=== PATIENT | female | born 1980 | race Caucasian/White ===

== ENCOUNTER 2020-09-04 06:33 | Day surgery (SDC) | payer BC ==
[2020-08-30 14:23] LABS: Absolute Lymphocytes (CBC) 2.4 K/uL (0.7-4.9); Basophils % 0.9 % (0-1.3); Hematocrit 41.7 % (36.0-45.0); MPV 8.6 fL (7.6-11.3); RBC Red Blood Cell Count 4.58 M/uL (3.86-4.86)
--- NOTE | 2020-08-30 14:26 | RAD REPORT ---
EXAM DESCRIPTION: Kobi Terrell (2 Views)08/30/2020 2:17 pm CLINICAL HISTORY: Preop for knee surgery COMPARISON: None FINDINGS: The lungs appear clear of acute infiltrate. The heart is normal size IMPRESSION: No acute abnormalities displayed
[2020-08-30 14:29] LABS: BUN Blood Urea Nitrogen 14 mg/dL (7-18); Bicarbonate 26 mmol/L (21-32); Glucose Level 81 mg/dL (74-106); Potassium 4.2 mmol/L (3.5-5.1); Sodium Level 144 mmol/L (136-145)
[2020-08-30 14:39] LABS: Protime INR 1.04
[2020-09-04] MEDS ORDERED: CEFAZOLIN/SWI 1gm 1 GM/10 ML SYR ONE (07:08)
[2020-09-04] MEDS ORDERED: Ringers Lactate 1,000 ML IV ONE ×2 (07:08→08:31)
[2020-09-04] MEDS ORDERED: FENTANYL CITR 100 MCG/2 ML ONE (07:23)
[2020-09-04] MEDS ORDERED: dexAMETHasone 10 MG/ML VIAL ONE (07:24)
[2020-09-04] MEDS ORDERED: LIDOCAINE 2% MPF 5 ML VIAL ONE (07:24)
[2020-09-04] MEDS ORDERED: MIDAZOLAM HCL 2 MG/2 ML INJ ONE (07:24)
[2020-09-04] MEDS ORDERED: propofoL 200 MG/20 ML VIAL IV ONE (07:24)
[2020-09-04] MEDS ORDERED: KETOROLAC 30 MG/ML INJ ONE (07:24)
[2020-09-04] MEDS ORDERED: ONDANSETRON 4 MG/2 ML VIAL ONE (07:25)
[2020-09-04] MEDS ORDERED: BUPIVACAINE 0.25% PF 30 ML VIAL ONE (07:30)
--- NOTE | 2020-09-04 08:44 | P.BOP ---
Preoperative diagnosis: left knee lateral meniscus tear Postoperative diagnosis: same Primary procedure: left knee arthroscopic lateral meniscus repair Continuous Pillowcase Cutter: NONE,NONE Specimen: none Anesthesia: General Complications: None Implants: 5 fast fix meniscal sutures Fluids & blood products: per anesthesia record; TT: 38 mins @ 300 mmHg Transferred to: Recovery Room Condition: Good
[2020-09-04 08:59] VITALS: O2SAT 100
[2020-09-04] MEDS ORDERED: HYDROCODONE/APAP 5/325 MG TAB ONE (10:09)
[2020-09-04 12:49] VITALS: BP 118/60
[2020-09-04 12:53] VITALS: TEMP 97.2
--- NOTE | 2020-09-05 14:42 | OP ---
Date of Procedure: 09/04/2020 Surgeon: Silverio Rain MD Preoperative Diagnosis: Left knee lateral meniscus tear. Postoperative Diagnosis: Left knee lateral meniscus tear. Procedure Performed: Left knee arthroscopic lateral meniscus repair. Anesthesia: General LMA. Fluids: Per Anesthesia record. Ebl: 3 cc. Complications: None. Implants: Five fast fix meniscal sutures. Indications For Procedure: Magdalena is a 40-year-old female who presented to my clinic with signs, symptoms, and MRI findings consistent with lateral meniscus tear. I discussed with the patient at length risks and benefits associated with operative and nonoperative treatment. She expressed understanding and elected to proceed with operative treatment. Description Of Procedure: After informed consent was obtained, the patient was identified in the preoperative holding area. The left lower extremity was marked. The patient was then brought back to the operating room, transferred to the operating table in supine fashion, placed under general LMA anesthesia. The left lower extremity was then prepped and draped in usual sterile fashion. Time-out was initiated. Correct patient and procedure were confirmed and identified. The patient did receive preoperative prophylactic antibiotics. The left lower extremity was then exsanguinated and the tourniquet was inflated to 300 mmHg. Standard anteromedial and anterolateral portals were created. Diagnostic arthroscopy was performed after placing the arthroscope within the lateral portal. No significant chondromalacia noted of the patella. No loose bodies found within the medial and lateral gutters. The arthroscope was brought into the medial compartment. The patient was noted to have an intact medial meniscus which was stable to probe and no significant chondromalacia noted of the medial femoral condyle and medial tibial plateau. The arthroscope was then brought in the intercondylar notch where the patient was noted to have an intact ACL and PCL which were stable to probe The arthroscope was then brought in the lateral compartment where the patient was noted to have longitudinal tear of posterior horn of the lateral meniscus posterior to the popliteal hiatus. Anterior to the popliteal hiatus there was no tear noted. A meniscal rasp was then used to freshen up the edges of the meniscal tear and did appear to be amenable to repair. Three Fast fix meniscal sutures were then placed from the superior border of the lateral meniscus in vertical mattress fashion and 2 meniscal sutures were placed in the inferior surface in horizontal mattress fashion for repair of the lateral meniscus tear and there was overall reduction of the meniscal tear and it was stable to probe. Arthroscopic instruments were then removed without complication. The wounds were then irrigated thoroughly with normal saline and portals were closed with 3-0 Monocryl. Sterile dressing was applied. Tourniquet was let down. The patient was transferred back to the PACU in stable condition. She will remain nonweightbearing on left lower extremity for 6 weeks. Follow up in my clinic in 1 week for wound check. CV/MODL Voice ID: [id number] Report ID: [id number] MARTY
== END 2020-09-04 10:35 | disposition home or self-care (01) ==
LOC: OR 06:33
PROVIDERS: ATTEND Orthopaedic Surgery Sports Medicine
PROC: 0SQD4ZZ Repair Left Knee Joint, Percutaneous Endoscopic Approach (ICD-10-PCS; principal; 2020-09-04 07:30)
DX: S83.282A Other tear of lateral meniscus, current injury, left knee, initial encounter (principal); M89.9 Disorder of bone, unspecified; I10 Essential (primary) hypertension; Z20.822 Contact with and (suspected) exposure to COVID-19
CPT/HCPCS: 85025; 80048; 36415; 81025; 85610; 85730; 71046; 29882; U0002; J2704; J2250; J3010; J1100; J0690; J7120 ×2; J2405

== ENCOUNTER 2022-09-02 08:32 | Day surgery (SDC) | payer BC ==
[2022-09-02 08:48] LABS: Absolute Lymphocytes (CBC) 2.2 K/uL (0.7-4.9); Hematocrit 40.7 % (36.0-45.0); Lymphocytes % 25.7 % (15.3-44.8); MCV 88.7 fL (80-100); MPV 7.5 fL (7.6-11.3); RBC Red Blood Cell Count 4.59 M/uL (3.86-4.86)
[2022-09-02 08:53] LABS: Specific Gravity 1.018 (1.005-1.030)
[2022-09-02 08:56] LABS: Protime INR 1.07
[2022-09-02] MEDS ORDERED: CEFAZOLIN SODIUM 1 GM/VIAL ONE (08:56)
[2022-09-02] MEDS ORDERED: Ringers Lactate 1,000 ML IV ONE (08:56)
--- NOTE | 2022-09-02 08:57 | RAD REPORT ---
EXAM DESCRIPTION: RAD - Chest Pa And Lat (2 Views) - 09/02/2022 8:33 am CLINICAL HISTORY: pre op for surgery COMPARISON: Chest Pa And Lat (2 Views) dated 08/30/2020 FINDINGS: Lines: None. Lungs: No evidence of edema or pneumonia. Pleural: No significant pleural effusions or pneumothorax. Cardiac: The heart size is within normal limits. Mediastinum: Within normal limits. Bones: No acute fractures. Other: None IMPRESSION: No acute cardiopulmonary disease.
[2022-09-02 09:00] LABS: Potassium 4.3 mmol/L (3.5-5.1)
[2022-09-02 09:18] VITALS: O2SAT 100
[2022-09-02] MEDS ORDERED: BUPIVACAINE 0.25% PF 30 ML VIAL ONE (11:12)
[2022-09-02] MEDS ORDERED: FENTANYL CITR 100 MCG/2 ML ONE (11:13)
[2022-09-02] MEDS ORDERED: propofoL 200 MG/20 ML VIAL IV ONE (11:13)
[2022-09-02] MEDS ORDERED: LIDOCAINE 2% MPF 5 ML VIAL ONE (11:14)
[2022-09-02] MEDS ORDERED: MIDAZOLAM HCL 2 MG/2 ML INJ ONE (11:14)
[2022-09-02] MEDS ORDERED: ONDANSETRON 4 MG/2 ML VIAL ONE (11:14)
[2022-09-02] MEDS ORDERED: dexAMETHasone 10 MG/ML VIAL ONE (11:56)
[2022-09-02] MEDS ORDERED: HYDROCODONE/APAP 5/325 MG TAB ONE (13:33)
[2022-09-02 14:07] VITALS: BP 113/79; TEMP 97.1
--- NOTE | 2022-09-02 15:19 | EKG ---
Test Date: 2022-09-02 Test Time: 08:11:36 Patient Resource Coordinator: ESTELA MEASUREMENT RESULTS: Intervals: Rate: 71 ND: 148 QRSD: 76 QT: 370 QTc: 402 [place]: P: 82 ND: 148 QRS: 37 T: 56 INTERPRETIVE STATEMENTS: Normal sinus rhythm with sinus arrhythmia Normal ECG Compared to ECG 08/30/2020 13:45:24 Sinus bradycardia no longer present Electronically Signed On 09-02-22 15:19:06 ACADEMIC VICE PRESIDENT by Dieudonne Rodriguez
--- NOTE | 2022-09-03 08:15 | P.BOP ---
Preoperative diagnosis: left knee lateral meniscus tear Postoperative diagnosis: same Primary procedure: left knee partial lateral meniscectomy Sort Worker: NONE,NONE Estimated blood loss: 3 cc Specimen: none Findings: see dictation Anesthesia: General Complications: None Implants: none Fluids & blood products: per anesthesia record; TT: 25 mins @ 250 mmHg Transferred to: Recovery Room Condition: Good
--- NOTE | 2022-09-03 11:53 | OP ---
Date of Procedure: 09/02/2022 Surgeon: Silverio Rain MD Preoperative Diagnosis: Left knee lateral meniscus tear. Postoperative Diagnosis: Left knee lateral meniscus tear. Procedure Performed: Left knee partial lateral meniscectomy. Anesthesia: General LMA. Fluids: Per Anesthesia record. Estimated Blood Loss: 3 cc. Complications: None. Indication For Procedure: Magdalena is a 42-year-old female who presented to my clinic with signs, symp toms, and MRI findings consistent with a displaced bucket-handle lateral meniscus tear. Patient had this tear in the past and had a lateral meniscus repair approximately 2 years ago and was doing well until a couple of weeks ago when she had a locking injury. Repeat MRI demonstrates a displaced later al meniscus bucket-handle tear. I discussed with the patient and her family at length risks and bene fits associated with operative and nonoperative treatment including lateral meniscus repair versus pa rtial lateral meniscectomy. They expressed understanding. Given the failure of repair, we discussed possibility of unhealthy tissue as well as inability to completely heal the tear and they expressed understanding and elected to proceed with operative treatment. Description Of Procedure: After informed consent was obtained, the patient was identified in the pre operative holding area. The left lower extremity was marked. Patient was then brought back to the o perating room, transferred to the operating table in supine fashion, placed under general LMA anesthe jamee. The left lower extremity was prepped and draped in usual sterile fashion. A time-out was initi ated. The correct patient and procedure were confirmed and identified. Patient did receive her preo perative prophylactic antibiotics. The standard anteromedial and anterolateral portals were created. Diagnostic arthroscopy was performed. Patient was noted to have some mild chondromalacia changes o f the patellofemoral joint. Arthroscope was brought to the medial compartment. Patient was noted to have pristine cartilage as well as intact medial meniscus, which was stable to probe. The arthrosco pe was then brought on the intercondylar notch. The patient did have an intact ACL and PCL, which we re stable to probe. There was a frayed lateral meniscus bucket-handle tear within the notch, it was reduced. The tissue did not appear to be amenable to repair with significant frayed edges and health y-appearing tissue. A partial lateral meniscectomy was performed using meniscal biters and arthrosco pic shaver to smooth borders. Arthroscopic instruments were then removed without complications. Wou nd was then irrigated thoroughly with normal saline and portals were approximated using a 4-0 Monocry l. Sterile dressings were applied. Tourniquet was let down. Patient was awakened and transferred t o PACU in stable condition. Postoperative Plan: The patient will be weightbearing as tolerated on her left lower extremity. She will follow up in 1 week for wound check. CV/MODL Voice ID: [id number] Report ID: [id number]
== END 2022-09-02 14:04 | disposition home or self-care (01) ==
LOC: OR 08:32
PROVIDERS: ATTEND Orthopaedic Surgery Sports Medicine
PROC: 0SBD4ZZ Excision of Left Knee Joint, Percutaneous Endoscopic Approach (ICD-10-PCS; principal; 2022-09-02 11:00)
DX: S83.282A Other tear of lateral meniscus, current injury, left knee, initial encounter (principal)
CPT/HCPCS: 93005; 85025; 80048; 36415; 81025; 85610; 85730; 71046; 29881; J2704; J2001; J2250; J3010; J1100; J7120; J2405; J0690